=== PATIENT | female | born 1980 | race Caucasian/White ===

== ENCOUNTER 2019-04-08 14:21 | Emergency (ER) | payer MEDICARE, SELFPAY ==
[2019-04-08 14:23] VITALS: BP 145/96; PULSE 103; RESP 16; TEMP 36.9; O2SAT 99; BMI 30.7
--- NOTE | 2019-04-08 15:10 | CT_ITS ---
STUDY: CT ABDOMEN AND PELVIS WITH CONTRAST REASON FOR EXAM: Female, 38 years old. Abdomen pain abd distension, hx Crohn''s RADIATION DOSAGE (If Supplied By Facility): CTDIvol = ( 12.55 ) mGy, DLP = ( 914.15 ) mGycm TECHNIQUE: Transaxial images were obtained from the dome of the diaphragm to the symphysis pubis without oral contrast. IV 100mL Isovue-300 was administered. Sagittal and coronal images were reconstructed. Individualized dose optimization techniques were used for this CT. COMPARISON: None. FINDINGS: The visualized lung bases are unremarkable. The visualized portions of the heart are within normal limits. Normal liver. The main portal vein diameter is 15 mm. There are surgical clips in the gallbladder fossa consistent with a prior cholecystectomy. The common bile duct diameter reaches 7 mm. Normal spleen. There is a 12.5 mm accessory spleen medial to the lower pole. Normal pancreas. Normal bilateral adrenal glands. Normal right kidney. Normal left kidney. No hydronephrosis. Normal visualized stomach. Normal small intestine. Normal colon. The appendix is visualized and appears normal. There is mild atherosclerotic calcification of the abdominal aorta and proximal iliac arteries, without a demonstrated aneurysm. Normal inferior vena cava. Normal retroperitoneum. Normal urinary bladder. Normal size anteverted uterus. Normal-appearing ovaries. There is a minor band of hypervascularity along the left adnexa. There is a small umbilical hernia containing fat. Normal osseous structures. CT/Abdomen/Pelvis W IV Cont ONLY IMPRESSION: 1. The bowel is unremarkable without sites of suspicious mural thickening, narrowing, or dilatation. The appendix is normal. 2. Mild aortoiliac atherosclerotic calcific plaquing. No demonstrated aneurysm. 3. Prior cholecystectomy. Electronically Signed: Jamey Delatorre MD at 17:38 EST , Service support ,
--- NOTE | 2019-04-08 15:27 | ED.DCSUM_ITS ---
- ER Visit Summary Date of Service: 04/08/19 Chief Complaint: Crohn's flare History of Present Illness: The patient is a 38 F with a history of Crohn's disease. She is on Cimzia injections. Her symptoms started 4 days ago. She presented to an outside emergency department and had a work-up that showed free fluid in her abdomen. She was prescribed Phenergan and Flagyl and referred to GI for outpatient follow-up. She cannot see GI until mid April. She saw her PCP today who referred her to the ED. He has bloating which is a new symptom. She also has right upper quadrant and right shoulder pain. Physical Examination: Afebrile and vital signs unremarkable except for heart rat e of 103. Patient appears nontoxic and in no acute distress. Skin appears normal without pallor or jaundice. Heart regular. Lungs clear. Abdomen is tender in the right upper quadrant. No guarding or rebound. There is mild distention with normal bowel sounds. Test Results: Labs, urine, imaging pending. Emergency Department Course and Treatment: Patient treated with morphine and Zofran while awaiting results. Will check labs, urine, and imaging. I requested her visit summary and results from the outside hospital. CT showed normal bowel. She does have some findings consistent with atherosclerosis of aorta and postoperative changes. There is no free fluid. CBC, CMP, lipase, urine, hCG all unremarkable. Patient may be having an early flare. She will continue her home medications and follow-up with GI as planned. Treatment Plan: As above Disposition: Discharge Impression: 1. Abdominal pain This note was generated with [employer] dictation software. It may contain incorrect words, spelling, and punctuation that were not noted in review of the chart prior to signing ED Disposition - Plan for ED Patient: Referrals: [facility] Doctor,Out of [NON-STAFF] -
[2019-04-08] MEDS: Morphine 4 MG/ML Syringe IV ×2 (16:17→17:36)
[2019-04-08] MEDS: Ondansetron 4 MG/2 ML Vial IV (16:17)
[2019-04-08 16:20] LABS: Absolute Lymphocyte Count 2.24 X10^3/uL (0.83-4.51); Absolute Neutrophil Count 7.7 X10^3/uL (2.0-7.7); Basophil# 0.06 X10^3/uL; Basophil% 0.6 % (0-1); Eosinophil# 0.06 X10^3/uL; Eosinophils% 0.6 % (0-5); Hemoglobin 14.4 g/dL (12.0-15.0); Lymphocyte # 2.24 X10^3/ul (4.0); Lymphocyte % 20.9 % (19-41); Mean Corp Hgb Conc 33.5 g/dL (32-36); Mean Corpuscular Volume 92.5 fL (81-99); Mean Platelet Vol. 11.1 fl (6.2-12.0); Monocyte# 0.59 X10^3/uL; Monocyte% 5.5 % (0-10); NRBC Flagged by Analyzer 0 % (0-5); Neutrophil # 7.72 X10^3/uL (2.7-7.7); Neutrophil % 72.1 % (47-70); Platelet Count 212 K/mm3 (150-450); RBC Distribution Width CV 12.7 % (11.6-14.6); RBC Distribution Width SD 43.5 fl (35.1-43.9); Red Blood Count 4.65 M/mm3 (4.2-5.4); White Blood Count 10.7 K/mm3 (4.4-11.0)
[2019-04-08 16:40] LABS: AST(SGOT) 12 U/L (15-37); Alanine Aminotransfer ALT/SGPT 23 U/L (13-56); Alkaline Phosphatase 62 U/L (45-117); Anion Gap 6 (5-15); BUN 9 mg/dL (7-18); BUN/Creat Ratio 11.1 RATIO (10-20); Chloride 103 mmol/L (98-107); Creatinine, Serum 0.81 mg/dL (0.55-1.02); EST Glomerular Filtration Rate 84 mL/min (>60); Est Glom Filt Rate - Afr Amer 102 mL/min (>60); Estimated Creatinine Clearance 99.38 ml/min; Glucose 85 mg/dL (74-106); Lipase 92 U/L (73-393); Potassium 3.4 mmol/L (3.5-5.1); Sodium Level 136 mmol/L (136-145)
[2019-04-08 16:57] LABS: Internal QC Validated? YES +Cl - CLEAR BKGD; Pregnancy, Serum, hCG Quali. NEGATIVE Negative
[2019-04-08 17:29] VITALS: BP 123/89; PULSE 91; RESP 13; O2SAT 97
[2019-04-08 19:13] LABS: Bacteria 0 SEEN /hpf (None Seen); Mucous, Urine 0 SEEN /hpf (<or=2+)
[2019-04-08 19:14] LABS: Color, Urine Yellow (Yellow); Glucose, Dipstick Normal (Normal); Ketone-Dipstick Negative (Negative); Leukocyte Esterase-Dipstick 500 /ul (Negative); Nitrite-Dipstick Negative (Negative); Occult Blood-Urine 25 /ul (Negative); Protein-Dipstick Negative (Negative); Specific Gravity, Urine 1.015 (1.002-1.030); Urine Bilirubin Dipstick Negative (Negative); Urine Clarity Sl. Cloudy (Clear); Urine Urobilinogen Normal (Normal)
[2019-04-08 19:20] LABS: Red Blood Cells-Urine 0-5 SEEN /hpf (0-5); Squamous Epithelial Cells - UA 0-5 SEEN /hpf (5-10); White Blood Cells 0-5 SEEN /hpf (0-5)
--- NOTE | 2019-04-08 19:43 | ED.DEP ---
ED Disposition - Plan for ED Patient: Instructions: ABDOMINAL PAIN, Unknown Cause, (Female) Referrals: Angelo Seymour MD [NON-STAFF] -
[2019-04-08 20:03] VITALS: BP 91/76; PULSE 96; RESP 17; O2SAT 100
--- NOTE | 2019-04-08 20:06 | ED.RN ---
POWER PORT FLUSHED WITH HEPARIN FLUSH PRIOR TO D/C.
== END 2019-04-08 20:07 | disposition home or self-care (01) ==
LOC: ED 15:31
PROVIDERS: Emergency Provider Emergency Medicine
DX: R10.11 Right upper quadrant pain (principal); K50.90 Crohn's disease, unspecified, without complications; M25.511 Pain in right shoulder; Z72.0 Tobacco use; Z79.899 Other long term (current) drug therapy
CPT/HCPCS: 36591; 74177; 80053; 81001; 83690; 84703; 85025; 96374; 96375; 96376; 99284; Q9967; A4216; J2405

== ENCOUNTER 2020-03-05 18:17 | Emergency (ER) | payer MEDICARE, SELFPAY ==
[2020-03-05 18:18] VITALS: BP 160/104; PULSE 99; RESP 16; TEMP 36.1; O2SAT 100; BMI 33.1
--- NOTE | 2020-03-05 18:24 | EKG12_ITS ---
Test Reason : DYSRHYTHMIA Blood Pressure : / mmHG Vent. Rate : 087 BPM Atrial Rate : 087 BPM P-R Int : 156 ms QRS Dur : 084 ms QT Int : 364 ms P-R-T Axes : 041 007 035 degrees QTc Int : 438 ms Normal sinus rhythm Normal ECG Confirmed by SANTA MORALES, LORI ([id number]), general expeditor SERGIO CABRERA ([id number]) on 03/09/2020 9:52:41 AM Referred By: BRANDT Confirmed By:LORI PRATT MD
[2020-03-05 19:17] VITALS: RESP 16
--- NOTE | 2020-03-05 19:18 | ED.DCSUM_ITS ---
History of Present Illness Chief Complaint: Dizziness Narrative: Patient presents with 3 to 4-day history of a headache, earlier today she started having some vertigo, she tells me the room is spinning. She has no history of vertigo, she has no history of migraine headaches. She has no history of head trauma, she has no fever or chills. She has no weakness in upper or lower extremities she has no paresthesias she has no speech difficulties. She denies any vision changes. The vertigo is positional and worse with movement. Review of systems: All systems negative except as indicated General: Denies: Fever Eyes: Denies: Visual changes - bilaterally ENT: Denies: Rhinorrhea, Sore throat Cardiovascular: Denies: Chest pain Respiratory: Denies: Dyspnea, Cough Gastrointestinal: Denies: Abdominal pain, Nausea, Vomiting Genitourinary: Denies: Dysuria Musculoskeletal: Denies: Myalgias Skin: Denies: Rash Neurological: Headache as in HPI, vertigo as in HPI Psych: Reports: negative Hematologic: Denies: Easy bruising, Easy bleeding Physical exam General: Well nourished, Well developed, No Acute Distress Head: Normocephalic, Atraumatic Eyes: Conjunctiva not pale ENT: Moist mucous membranes Neck: Supple, Nontender, No lymphadenopathy Cardiovascular: Regular rate, Regular rhythm Respiratory: No distress, CTA bilaterally Abdomen: Soft, Nontender, Nondistended Back: Nontender, Normal Inspection. Negative for: CVA tenderness Extremities: Nontender, No edema Skin: Normal color, No rash Neurological: Alert, Normal Strength, Normal Sensation normal Romberg. Normal cerebellar. Psychological: Normal affect Past Medical History - Allergies and Home Meds Allergies/Adverse Reactions: Allergies CILLIANS Allergy (Uncoded 03/05/20 19:32) Chest tightness Primary Care Physician: Care Physician,No Primary [NON-STAFF] - Smoking Status: Current every day smoker Physical Exam Vital Signs/Narrative: Vital Signs Temp Pulse Resp BP Pulse Ox 03/05/20 18:18 97.0 F L 99 16 160/104 H 100 Diagnostic/Tx/Re-eval - Medical Decision Making Patient has a normal work-up. She has a normal neurological exam. She significantly improved. I will discharge her with ENT follow-up for her headache and vertigo. ED Disposition - Plan for ED Patient: Diagnosis: Vertigo, Headache Instructions: ED Vertigo, Unspecified Prescriptions: Meclizine HCl 25 mg PO BID PRN #30 tab PRN Reason: Vertigo Transmission Status: Pending to [id number] Referrals: Care Physician,No Primary [NON-STAFF] - 3-5 Days Alber Beaulieu MD [STAFF PHYSICIAN] - 3-5 Days
[2020-03-05] MEDS: 0.9% Normal Saline 1,000 ML 1000 ML IV (19:26)
[2020-03-05] MEDS: LORazepam 2 MG/ML Syringe 0.5 MG IV (19:26)
[2020-03-05] MEDS: Metoclopramide 10 MG/2 ML Vial IV (19:28)
[2020-03-05] MEDS: DiphenhydrAMINE 50 MG/ML Syringe 25 MG IV (19:29)
--- NOTE | 2020-03-05 19:32 | CT_ITS ---
STUDY: CT BRAIN WITHOUT CONTRAST REASON FOR EXAM: Female, 39 years old. HOOK X 4 DAYS. NOW DIZZY. R SIDE FACE NUMBNESS PT IS OFF BALANCE RADIATION DOSAGE (If Supplied By Facility): CTDIvol = ( 44.99 ) mGy, DLP = ( 829.85 ) mGycm TECHNIQUE: Transaxial CT imaging of the brain was performed without administration of intravenous contrast material. Individualized dose optimization techniques were used for this CT. COMPARISON: No relevant priors. FINDINGS: Normal soft tissue structures. Normal calvarium. Normal size ventricles and extra-axial spaces for the patient''s age. Normal white matter tracts of the cerebral hemispheres. Normal basal ganglia and thalami. Normal brainstem. Normal cerebellum. There is no intracranial hemorrhage. There are no findings of an acute ischemic infarction. Normal visualized paranasal sinuses. CT/Brain/Head without Contrast IMPRESSION: No acute intracranial process. Electronically Signed: Vera Holman MD at 19:47 EST Tel , Service support ,
[2020-03-05 19:49] LABS: Absolute Lymphocyte Count 1.94 X10^3/uL (0.83-4.51); Absolute Neutrophil Count 7.6 X10^3/uL (2.0-7.7); Basophil# 0.05 X10^3/uL; Basophil% 0.5 % (0-1); Hematocrit 39.6 % (37-47); Hemoglobin 12.8 g/dL (12.0-15.0); Lymphocyte # 1.94 X10^3/ul (4.0); Lymphocyte % 18.8 % (19-41); Mean Corp Hgb Conc 32.3 g/dL (32-36); Mean Corpuscular Hgb 31.1 pg (27.0-32.0); Mean Corpuscular Volume 96.1 fL (81-99); Monocyte# 0.61 X10^3/uL; Monocyte% 5.9 % (0-10); NRBC Flagged by Analyzer 0 % (0-5); Neutrophil # 7.57 X10^3/uL (2.7-7.7); Neutrophil % 73.5 % (47-70); Platelet Count 231 K/mm3 (150-450); RBC Distribution Width CV 13.8 % (11.6-14.6); RBC Distribution Width SD 49.2 fl (35.1-43.9); Red Blood Count 4.12 M/mm3 (4.2-5.4); White Blood Count 10.3 K/mm3 (4.4-11.0)
[2020-03-05 20:25] LABS: ALB/GLOB Ratio 1.2 RATIO (0.9-2.4); AST(SGOT) 12 U/L (15-37); Alanine Aminotransfer ALT/SGPT 24 U/L (13-56); Albumin, Serum 3.7 g/dL (3.2-5.0); Alkaline Phosphatase 64 U/L (45-117); Anion Gap 6 (5-15); BUN 10 mg/dL (7-18); BUN/Creat Ratio 13.2 RATIO (10-20); Calcium,Total 8.1 mg/dL (8.5-10.1); Chloride 107 mmol/L (98-107); Creatinine, Serum 0.76 mg/dL (0.55-1.02); EST Glomerular Filtration Rate 91 mL/min (>60); Est Glom Filt Rate - Afr Amer 110 mL/min (>60); Estimated Creatinine Clearance 108.53 ml/min; Globulin 3.2 g/dL (2.2-4.2); Glucose 88 mg/dL (74-106); Potassium 3.7 mmol/L (3.5-5.1); Protein, Total 6.9 g/dL (6.4-8.2); Sodium Level 139 mmol/L (136-145)
[2020-03-05 20:29] VITALS: BP 129/82; PULSE 93; RESP 16; O2SAT 98
== END 2020-03-05 21:05 | disposition home or self-care (01) ==
PROVIDERS: Emergency Provider Emergency Medicine; PCP Family Medicine
DX: R42 Dizziness and giddiness (principal); R51.9 Headache, unspecified; F17.200 Nicotine dependence, unspecified, uncomplicated; Z79.899 Other long term (current) drug therapy
CPT/HCPCS: 36591; 70450; 80053; 84484; 85025; 93005; 96361; 96374; 96375; 99282; J7030; A4216